=== PATIENT | female | born 1990 | race Caucasian/White ===

== ENCOUNTER 2023-10-29 12:17 | Emergency (ER) | payer OTHER, SELFPAY ==
[2023-10-29 12:22] VITALS: BP 132/89
--- NOTE | 2023-10-29 13:40 | ED.GENMED ---
History of Present Illness
General
Chief Complaint: Abdominal Symptoms
Time Seen by Provider: 10/29/23 12:54
Travel History
Have you had any contact with someone who has COVID-19?: No
Do you have any symptoms of coronavirus? Fever > 100 degrees, chills, cough, shortness of breath, sore throat, loss of taste or smell, muscle aches, or headache?: No
History of Present Illness
History of Present Illness:
33-year-old female with history of anxiety and depression presents to the emergency department for evaluation of intermittent abdominal cramping, nausea, and diarrhea ongoing for the past 9 days. She has had intermittent loose bowel movements,
denies any bloody bowel movements or watery diarrhea. Pain is currently very minimal, rated 1 out of 10. States the pain increases every time she eats, does not seem to have a clear provoking type of food. No vomiting, no lower urinary tract
voiding symptoms. No history of intra-abdominal surgeries. Did have a lipoma removed from the abdominal wall many years ago. Denies any ill contacts at home. No recent suspicious food intake
Past History
Past History
ED Past Medical History: Psychiatric (Anxiety, Depression) and Other (Migraines)
ED Past Surgical History: Other (Lipoma removed from abd)
Social History
Tobacco: Former smoker
Alcohol: None
Personal: Single
Living: with family
Review of Systems
Review of Systems
Allergies reviewed?: Yes
All Other Systems: ROS reviewed and negative except as documented in HPI and ROS
Phy Exam
Physical Exam
Physical Exam:
GEN: Well appearing, NAD, WDWN
HEENT: Oral mucosa moist, no scleral icterus
Cardiac: Regular rate
Lung: No respiratory distress, no tachypnea
Abdomen: Soft, vague mild tenderness diffusely to the lower abdomen, no focal pain, no rigidity or peritoneal signs
MSK: No gross deformity or injuries
Skin: Good color, no pallor or jaundice, no rashes
Neuro: AO x3, moves all extremities freely
Psych: Calm, cooperative
Course
Orders/Labs/Results
Orders:
Orders
10/29/23 13:06
0.9% Sodium Chloride 1000 ml [Nss] 1,000 ml IV BOLUS
10/29/23 13:33
Test Result ONCE
10/29/23 13:43
Complete Blood Count/With Diff Urgent
Comprehensive Metabolic Panel Urgent
HCG, Serum Qualitative Screen Urgent
Lipase Urgent
10/29/23 13:50
Urinalysis Reflex To Culture Urgent
Date Specimen was Collected: 10/29/23
Time Specimen was Collected: 13:47
Urine Microscopic Reflex Cult Urgent
Urine Culture Urgent
HOANG Source: U
Specimen Description:
Date Specimen was Collected: 10/29/23
Time Specimen was Collected: 13:47
Abnormal Lab Results
10/29/23 10/29/23
13:43 13:50
Glucose 111 H mg/dl
(70-99)
Ur Occult Blood Reflex Trace A
(Negative)
Leukocyte Esterase Rfl Trace A
(Negative)
Urine Bacteria (Reflex) Many A
(Negative)
10/29/23 13:43
10/29/23 13:43
Vital Signs
Initial and Last Documented VS:
Initial Vital Signs
Temp Pulse Resp BP Pulse Ox
98.1 F 98 18 132/89 100
10/29/23 12:22 10/29/23 12:22 10/29/23 12:22 10/29/23 12:22 10/29/23 12:22
Last Documented Vital Signs
Temp Pulse Resp BP Pulse Ox
98.1 F 96 18 123/87 100
10/29/23 12:22 10/29/23 14:56 10/29/23 12:22 10/29/23 14:56 10/29/23 12:22
MDM/Problems Addressed
MDM/Problems Addressed:
Patient's labs are reassuring, her abdominal exam is benign, clinical presentation is not concerning for acute surgical pathology such as appendicitis. Patient is provided with stool collection kit for home testing to obtain stool culture and WBC.
Recommend outpatient GI follow-up, this could likely represent a self-limited viral syndrome versus ongoing functional bowel disorder
*Critical Care Note
Total Time (30-74mins, 75-104mins- exclusive of procedures): Not Applicable
ED Attending Note
-
Portions of this chart may have been created with voice recognition software.� Occasional wrong word or��sound alike� substitutions may have occurred due to the inherent limitations of voice recognition software.
Discharge Plan
Departure
Patient Disposition: Home (Routine Discharge)
Date of Disposition: 10/29/23
Time of Disposition: 14:42
Patient with high blood pressure during this ER visit?: No
Discharge Problem:
Bilateral lower abdominal pain
Instructions: Diarrhea in adolescents and adults
Prescriptions:
New
dicyclomine 20 mg tablet
20 mg PO QID PRN (Reason: abdominal pain) Qty: 20 0RF
No Action
doxycycline monohydrate 100 mg capsule
100 mg PO BID Qty: 14 1RF
Referrals:
Rohit Hutchins DO [Family Provider] -
Denisha Moore MD [Active] -
Activity Restrictions/Additional Instructions:
Collect your stool specimens whenever possible
Follow up with GI
Interventions
Interventions:
*Risk Screen - Suicide Last Done: 10/29/23 13:50
*General Assessment Last Done: 10/29/23 13:50
*Neglect/Abuse Screening Last Done: 10/29/23 13:50
ED- Fall Risk Assessment Last Done: 10/29/23 13:50
*ED COVID-19 Vaccine History Last Done: 10/29/23 13:50
*Nursing Disposition Last Done: 10/29/23 14:56
LS-[id number]-[id number] Assessment Last Done: 10/29/23 13:50
Discharge Date and Time
Discharge Date/Time: 10/29/23 14:56
[2023-10-29] MEDS: NSS 1000 IV (13:43)
[2023-10-29 13:44] VITALS: BMI 20.6
[2023-10-29 13:55] LABS: % Basophils 0.5 % (0-2); % Immature Granulocytes 0.2 % (0-0.5); % Lymphocytes 24.8 % (20.5-51.1); % Neutrophils 68.5 % (42.2-75.2); Absolute Eosinophils 0.1 10^3/uL (0-0.7); Absolute Monocytes 0.4 10^3/uL (0.1-0.6); Absolute Neutrophils 5.5 10^3/uL (1.4-6.5); Hematocrit 41.5 % (37.0-47.0); Hemoglobin 14.2 g/dL (12.0-16.0); Mean Corp Hgb Conc. 34.2 g/dL (33.0-37.0); Mean Corpuscular Hgb 28.7 pg (27.0-31.0); Mean Platelet Volume 9.3 fL (7.4-10.4); Nucleated Red Blood Cells % 0 %; Platelet Count 296 10^3/uL (130-400); Red Blood Cell Count 4.94 10^6/uL (4.20-5.40); Red Cell Dist. Width 12.2 % (11.5-14.5); White Blood Cell Count 8.1 10^3/uL (4.8-10.8)
--- NOTE | 2023-10-29 14:01 | EDRN ---
Report given to Hilary CLARK at this time. Pt taken from room #15 to RP at this time by Hilary CLARK.
[2023-10-29 14:11] VITALS: BP 117/66
[2023-10-29 14:14] LABS: HCG, Serum Qualitative Screen Negative
[2023-10-29 14:15] LABS: ALT (SGPT) < 10 U/L (0-35); AST (SGOT) 17 U/L (14-36); Albumin 4.3 g/dl (3.5-5.0); Alkaline Phosphatase 72 U/L (38-126); Blood Urea Nitrogen 11 mg/dl (7-17); Calcium 9.5 mg/dl (8.4-10.2); Carbon Dioxide 25 mmol/L (22-30); Chloride 101 mmol/L (98-107); Estimated Creatinine Clearance 116 ml/min; Glucose 111 mg/dl (70-99); Potassium 4.3 mmol/L (3.5-5.1); Sodium 137 mmol/L (135-145); Total Bilirubin 0.8 mg/dl (0.2-1.3); Total Protein 7.2 g/dl (6.3-8.2); eGFR > 60.00
[2023-10-29 14:19] LABS: Urine Albumin Negative (Neg - Trace); Urine Bilirubin Negative (Negative); Urine Character Clear (Clear); Urine Color Yellow; Urine Glucose Negative (Negative); Urine Ketone Negative (Negative); Urine Leukocyte Trace (Negative); Urine Nitrite Negative (Negative); Urine Occult Blood Trace (Negative); Urine Specific Gravity 1.015 (<1.030); Urine Urobilinogen 1+ (Neg - 1+)
[2023-10-29 14:56] VITALS: BP 123/87
[2023-10-29 14:56] LABS: Lipase 90 U/L (23-300)
[2023-10-29 15:08] LABS: Urine Amorphous Seen; Urine Mucus Many; Urine Squamous Cell >30 /LPF (Few)
[2023-10-29 15:09] LABS: Urine Bacteria Many (Negative); Urine Red Blood Cell 0-2 /HPF (0-2); Urine White Cell 0-2 /HPF (0-5)
== END 2023-10-29 14:56 | disposition home or self-care (01) ==
LOC: EMR 12:17
PROVIDERS: Physician Assistant; EMERGENCY PHYSICIAN Emergency Medicine; FAMILY PHYSICIAN Family Medicine Adult Medicine
DX: R10.30 Lower abdominal pain, unspecified (principal)
CPT/HCPCS: 80053; 81003; 81015; 83690; 84703; 85025; 87086; 96360; 99284

== ENCOUNTER → 2023-10-30 11:21 | Outpatient (REF) | payer OTHER, SELFPAY | LOC: HWLAB 11:21 | PROVIDERS: ATTENDING PHYSICIAN Family Medicine Adult Medicine | DX: R19.7 Diarrhea, unspecified (principal) | CPT/HCPCS: 87045; 87046; 87077; 87427; 89055 ==